=== PATIENT | male | born 2000 ===

== ENCOUNTER → 2023-07-17 10:27 | Outpatient (CLI) | payer OTHER, SELFPAY ==
--- NOTE | ~2023-07-17 | US_ITS ---
EXAMINATION: US soft tissue head and neck DATE: 07/17/2023 10:44 INDICATION: Generalized enlarged lymph nodes . TECHNIQUE: Grayscale and Doppler ultrasound images of the neck were obtained. COMPARISON: None. FINDINGS: 3.2 x 0.7 x 1.3 cm soft tissue lesion in the area of palpable abnormality, with vascular fl ow. Multiple additional prominent lymph nodes noted along the anterior cervical chain. IMPRESSION: 3.2 cm soft tissue lesion in the region of the palpable abnormality, likely representing an enlarged lymph node. Correlate for findings of infection. Consider clinical/laboratory evaluation for lymphopr oliferative disease. Reviewed, dictated and finalized at location K. IMPRESSION: 3.2 cm soft tissue lesion in the region of the palpable abnormality, likely rep resenting an enlarged lymph node. Correlate for findings of infection. Consider clinical/laboratory evaluation for lymphoproliferative disease.
== END ==
DX: R59.1 Generalized enlarged lymph nodes (principal)
CPT/HCPCS: 76536